=== PATIENT | male | born 1985 | race Caucasian/White ===

== ENCOUNTER 2021-10-04 15:02 | Emergency (ER) | payer OTHER, SELFPAY ==
[2021-10-04 15:12] VITALS: PULSE 95; RESP 18; TEMP 36.8; O2SAT 99; BMI 36.5
[2021-10-04] MEDS: PROPARACAINE 0.5% OPHTH SOL 1 DROPS EYE-LEFT (17:15)
[2021-10-04] MEDS: ERYTHROMYCIN OPHTH 1 GM OINT 1 APPLIC EYE-LEFT (17:16)
[2021-10-04] MEDS: FLUORESCEIN 1 MG STRIP EYE-LEFT (17:16)
--- NOTE | 2021-10-04 17:47 | ED_ITS ---
HPI - Eye Problem <DARRELL Hinton - Last Filed: 10/04/21 20:59> General Chief complaint: Eye Problems Stated complaint: Wood chip in eye, can't remove Time Seen by Provider: 10/04/21 15:34 Source: patient Mode of arrival: Ambulatory History of Present Illness HPI Narrative: 36-year-old male presents to the emergency department complaining of which hip and his left eye. 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 Patient feels like there is still foreign body in his eye he thinks it is scratching the eyelid. He states this has happened to him before, he denies any vision changes, eye pain, he feels sensation of foreign body and that is painful but he denies any eye pain 1 is I moves. He denies any photosensitivity, says he has frequent tearing out of his left eye this time. Patient states his tetanus is up-to-date. Denies any allergies. Related Data Previous Rx's Medication Instructions Recorded ranitidine HCl 150 mg capsule 150 mg PO BID #60 cap 11/25/17 erythromycin 5 mg/gram (0.5 %) eye 1 cm EYE-BOTH Q8H #1 gram 03/30/19 ointment Allergies Allergy/AdvReac Type Severity Reaction Status Date / Time Sulfa (Sulfonamide Allergy Intermediate hives Verified 03/30/19 08:18 Antibiotics) Review of Systems <DARRELL Hinton - Last Filed: 10/04/21 20:59> Review of Systems Narrative: General: denies fever, chills, malaise, sweats, fatigue Head/Neck: denies headache, neck pain, dizziness Eyes: denies visual changes, denies eye pain, states foreign body sensation to left eye Cardio: denies chest pain, palpitations, edema Respiratory: denies dyspnea, cough, orthopnea MSK: denies joint pain, muscle weakness Skin: denies rash, itching, skin lesions or other Neuro: denies numbness, tingling Patient History <DARRELL Hinton - Last Filed: 10/04/21 20:59> Social History Smoking Status: Current every day smoker Smoking Status: Current every day smoker tobacco type: cigarettes alcohol intake frequency: a few times a week Substance Use Type: does not use Exam <DARRELL Hinton - Last Filed: 10/04/21 20:59> Narrative Exam Narrative: Independently reviewed vitals signs and nursing notes. General: cooperative, comfortable, in no acute distress, well developed and well groomed Head: atraumatic, symmetrical facial expressions Neck: supple, atraumatic, without lymphadenopathy. Eyes: pupils equal round and reactive, EOMI, conjunctiva normal, fluorescein exam with Wood's lamp shows a small foreign body on the lateral aspect of his cornea approximately 03:00 o'clock, approximately 1 mm in diameter. This was removed with a wet Q-tip, patient appears have a corneal abrasion in this location. Erythromycin ointment was applied, patient states that he feels better, visual acuity is intact without any deficit, no vision changes, no photosensitivity or eye pain with movements. Nose: nares patent, no rhinorrhea MSK: moves all extremities, ambulatory w/steady gait, neurovascularly intact, no weakness Skin: brisk capillary refill, no rash, no erythema Neuro: normal speech and cognition, A&O x3, normal tone Psych: mental status is grossly normal, congruent mood, normal affect, pleasant and cooperative Initial Vital Signs Initial Vital Signs: Vital Signs Temperature 98.2 F 10/04/21 15:12 Pulse Rate 95 H 10/04/21 15:12 Respiratory Rate 18 10/04/21 15:12 Pulse Oximetry 99 10/04/21 15:12 Course <DARRELL Hinton - Last Filed: 10/04/21 20:59> Orders Ordered: Discontinued Medications Erythromycin (Erythromycin Ophth 1 Gm Oint) 1 applic EYE-LEFT NOW ONE Stop: 10/04/21 15:36 Last Admin: 10/04/21 17:16 Dose: 1 applic Documented by: GIANA Fluorescein Sodium (Fluorescein 1 Mg Strip) 1 mg EYE-LEFT NOW ONE Stop: 10/04/21 15:36 Last Admin: 10/04/21 17:16 Dose: 1 mg Documented by: GIANA Proparacaine HCl (Proparacaine 0.5% Ophth Michelle) 1 drops EYE-LEFT NOW ONE Stop: 10/04/21 15:36 Last Admin: 10/04/21 17:15 Dose: 1 drops Documented by: GIANA Vital Signs Vital signs: Vital Signs - 8 hr 10/04/21 15:12 10/04/21 18:06 Temperature 98.2 F Pulse Rate 95 H 80 Respiratory Rate 18 18 Blood Pressure 151/90 H Pulse Oximetry 99 97 [facility] - Eye Problem <Danyell Turpin, APPEALS BOARD REFEREE - Last Filed: 10/04/21 20:59> MDM Narrative Medical decision making narrative: This is a 36-year-old male who was at work when a piece of sawdust got into his left eye, he came in to the emergency department complaining of foreign body sensation in his left eye. He was found to have a small wood foreign body approximately 1 mm in diameter on the lateral aspect of his left cornea approximately 03:00 o'clock. Fluorescein exam with Wood's lamp shows a small corneal abrasion in this location. Erythromycin ointment was applied, no other foreign bodies or abrasions were visualized on exam with eversion of the lid. Patient was referred to Ophthalmology and understands to follow-up as needed. His tetanus is up-to-date. Patient is appropriate and amenable to discharge home. Vital signs are stable on repeat examination is unremarkable. Patient has been informed of results. Patient has been given strict return to ER precautions for any new or worsening symptoms. Patient understands to follow up closely with outpatient providers as instructed. Patient understands plan and agrees to discharge home. All questions and concerns answered at this time. Discharge Plan Departure Patient Disposition: Home Clinical Impression: Work related injury Corneal foreign body Qualifiers: Encounter type: initial encounter Laterality: left Qualified Code(s): T15.02XA - Foreign body in cornea, left eye, initial encounter Corneal abrasion Qualifiers: Encounter type: initial encounter Laterality: right Qualified Code(s): S05.01XA - Injury of conjunctiva and corneal abrasion without foreign body, right eye, initial encounter Instructions: Corneal Abrasion Activity Restrictions/Additional Instructions: *You have been diagnosed with a corneal abrasion from a wood piece that was imbedded in your cornea now removed. Please use this erythromycin ointment 4 times a day for the next 5 days. Please follow-up with ophthalmology if you have any worsening of your symptoms. Please do not put any antihistamine or allergy eyedrops in your eye. Only natural tears or erythromycin ointment. Thank you for trusting us with your care, [id number]. Follow-up with your primary care provider if you have any problems in the meantime. *What to do: *Please continue to take your regular medications as directed. [ ] New medication prescriptions sent to your pharmacy: [ ] [ ] New medication written as a paper prescription [x ] No new medications given *Please follow up with your primary care provider in 2-3 days, call for an appointment. Let them know you were seen in the Emergency Department and that we asked that you be seen for follow-up. We will electronically transmit a record of today's note if your PCP is in our system *If you do not have a primary care provider please contact [phone] to establish care with one of the [facility] primary care providers. *Return to Emergency Department if you should have any new, worsening or concerning symptoms, such as [fever greater than 101F, chills, worsening pain, persistent vomiting or other bothersome symptoms] Prescriptions: No Action ranitidine HCl 150 mg capsule 150 mg PO BID Qty: 60 2RF erythromycin 5 mg/gram (0.5 %) ointment 1 cm EYE-BOTH Q8H Qty: 1 0RF Referrals: Janny Damon MD [Physician] -
--- NOTE | 2021-10-04 18:03 | PC.NURSE ---
Corby RAMÍREZ canceled visual acuity. Pt had wood removed from his eye and feels so much better. states he can see just fine. denies pain.
[2021-10-04 18:06] VITALS: BP 151/90; PULSE 80; RESP 18; O2SAT 97
== END 2021-10-04 18:08 | disposition home or self-care (01) ==
PROVIDERS: Emergency Provider Nurse Practitioner Critical Care Medicine
DX: T15.02XA Foreign body in cornea, left eye, initial encounter (principal); X58.XXXA Exposure to other specified factors, initial encounter; Y99.0 Civilian activity done for income or pay
CPT/HCPCS: 65220; 99282

== ENCOUNTER 2022-01-01 00:13 | Emergency (ER) | payer OTHER, SELFPAY ==
[2022-01-01 00:19] VITALS: BP 139/81; PULSE 101; PULSE 99; RESP 18; TEMP 37.2; O2SAT 96; O2SAT 98
[2022-01-01 00:30] VITALS: PULSE 97; O2SAT 96
--- NOTE | 2022-01-01 00:39 | DI.RAD.S_ITS ---
PROCEDURE: XR CHEST 1V INDICATIONS: short of breath TECHNIQUE: One view of the chest was acquired. COMPARISON: None. FINDINGS: Surgical changes and devices: None. Lungs and pleura: Lungs are clear. No pleural effusions or pneumothorax. Mediastinum: Mediastinal contours appear normal. Heart size is normal. Bones and chest wall: No suspicious bony lesions. Overlying soft tissues appear unremarkable. IMPRESSION: 1. No acute cardiopulmonary disease. Dictated by: Pierce Araujo M.D. on 01/01/2022 at 1:26 Approved by: Pierce Araujo M.D. on 01/01/2022 at 1:26
[2022-01-01 00:43] LABS: COVID19 -Nasal RAPID Negative (Negative)
--- NOTE | 2022-01-01 00:47 | ED.SOB ---
HPI - SOB/Dyspnea General Chief Complaint: Shortness of Breath/Dyspnea Stated Complaint: SOB Time Seen by Provider: 01/01/22 00:35 Source: patient Mode of arrival: Ambulatory History of Present Illness HPI Narrative: Patient is a 36-year-old male who presents with shortness of breath and chest discomfort. He states that he has had shortness of breath and chest discomfort ongoing for a long time. He has pain in the center of his chest he describes as sharp his last for about 10 minute sometimes it goes to his arms. It comes and goes both at rest and with exertion. He is also complaining of some shortness of breath as well more with exertion. He denies any orthopnea fever chills. He admits to drinking too much alcohol tonight. He tended to his girlfriend that he was having some shortness breath she thought he was short of breath and came to the ER for evaluation. He admits to smoking cigarettes more when he drinks. He states that he does drink regularly but not this much. Related Data Previous Rx's Medication Instructions Recorded ranitidine HCl 150 mg capsule 150 mg PO BID #60 caps 11/25/17 erythromycin 5 mg/gram (0.5 %) eye 1 cm EYE-BOTH Q8H #1 g 03/30/19 ointment Allergies Allergy/AdvReac Type Severity Reaction Status Date / Time Sulfa (Sulfonamide Allergy Intermediate hives Verified 03/30/19 08:18 Antibiotics) Review of Systems Review of Systems Narrative: GENERAL: Denies chills, fatigue, malaise, fever, sweats, travel HEENT: Denies sinus pain, ear pain, sore throat, difficulty swallowing, neck pain RESPIRATORY: See HPI CARDIOVASCULAR: Denies chest pain, palpitations, orthopnea, edema GASTROINTESTINAL: Denies nausea, vomiting, abdominal pain, diarrhea, constipation, melena. : Denies dysuria, frequency, incontinence, hematuria, urinary retention, flank pain. MUSCULOSKELETAL: Denies weakness, joint pain, or bony pain SKIN: No rash, no erythema, no pruritus NEUROLOGIC: Denies weakness, dizziness, headache, numbness, change in speech, confusion PSYCHIATRIC: No concerning psychosocial issues. 12 point review of systems is negative except for those stated above and HPI Patient History Social History Smoking Status: Current every day smoker Smoking Status: Current every day smoker tobacco type: cigarettes alcohol intake frequency: a few times a week Substance Use Type: does not use Exam Initial Vital Signs Initial Vital Signs: Vital Signs Temperature 98.9 F 01/01/22 00:19 Pulse Rate 101 H 01/01/22 00:19 Respiratory Rate 18 01/01/22 00:19 Blood Pressure 139/81 01/01/22 00:19 Pulse Oximetry 98 01/01/22 00:19 Oxygen Delivery Method 01/01/22 00:19 GENERAL: Alert intoxicated 36-year-old male and in no acute distress. HEENT: Head atraumatic,EOMI, pupils reactive, face symmetric, moist mucous membranes CARDIOVASCULAR: Regular rate and rhythm without murmurs, rubs or gallops. RESPIRATORY: Breath sounds equal bilaterally, no wheezes rales or rhonchi. ABDOMEN: Soft, nontender. Normoactive bowel sounds all 4 quadrants. No guarding or rebound. EXTREMITIES: Normal range of motion, no clubbing or edema. Neurovascularly intact NEUROLOGICAL: Alert and oriented x4.Normal gait and speech. SKIN: Warm, dry, no laceration, no petechiae, no rashes or lesions. Scores HEART Score Heart Score history: Slightly Suspicious Heart Score EKG: Normal Heart Score Age: < 45 years old Heart Score risk factors: No known risk factors Heart Score troponin: < or = to normal limit Heart Score Total: 0 PERC Score Age greater than or equal to 50 years: No Heart rate greater than or equal to 100 bpm: Yes (101) Room Air O2 Sat less than 95%: No Unilateral leg swelling: No Recent trauma or surgery: No Hemoptysis: No Prior PE or DVT: No Hormone Use: No Total PERC Score: 1 Course Orders Ordered: ED Orders 01/01/22 00:15 COVID19 -Nasal RAPID/Pre-Proc Stat 01/01/22 00:21 EKG-12 Lead Stat 01/01/22 00:26 Complete Blood Count AUTO DIFF Stat Comprehensive Metabolic Panel Stat Lipase Stat NT-proBNP (BNP-Adult 18+) Stat Troponin & CK Cardiac Panel Stat 01/01/22 00:39 XR chest 1V Stat Discontinued Medications Albuterol (Albuterol Hfa Mdi 60 Puff/8 Gm Inhaler) 1 puff INH NOW ONE Stop: 01/01/22 01:57 Last Admin: 01/01/22 02:04 Dose: 1 puff Documented By: TV Albuterol (Albuterol Hfa Prepack) 1 box MISC SEEINSTR ONE Stop: 01/01/22 02:20 Albuterol/Ipratropium (Albuterol/Ipratropium 3 Ml Ampul) 3 ml INH NOW ONE Stop: 01/01/22 00:51 Last Admin: 01/01/22 02:22 Dose: 3 ml Documented By: EB Vital Signs Vital signs: Vital Signs - 8 hr 01/01/22 00:19 01/01/22 00:19 01/01/22 00:30 Temperature 98.9 F Pulse Rate 101 H 99 H 97 H Respiratory Rate 18 Blood Pressure 139/81 Pulse Oximetry 98 96 96 Oxygen Delivery Method Room Air 01/01/22 01:00 01/01/22 01:30 01/01/22 02:13 Temperature Pulse Rate 97 H 93 H Respiratory Rate Blood Pressure Pulse Oximetry 94 96 97 Oxygen Delivery Method 01/01/22 02:14 01/01/22 02:14 Temperature Pulse Rate 69 Respiratory Rate Blood Pressure 132/70 Pulse Oximetry 98 Oxygen Delivery Method MDM - SOB/Dyspnea Lab Data Result diagrams: 01/01/22 00:26 01/01/22 00:26 Labs: Lab Results 01/01/22 01/01/22 01/01/22 Range/Units 00:15 00:26 00:26 WBC 8.5 (4.5-11.0) X10^3/uL RBC 5.20 (4.5-5.9) X10^6/uL Hgb 15.6 (13.5-17.5) g/dL Hct 44.0 (41-53) % MCV 84.6 (80-100) fL MCH 30.1 (26-34) PG MCHC 35.5 (30-36) % RDW 12.6 (11.6-14.8) % Plt Count 399 (150-400) X10^3/uL Neut % (Auto) 47.0 L (50-75) % Lymph % (Auto) 39.5 (25-40) % Calloway % (Auto) 7.6 (3-14) % Eos % (Auto) 4.7 H (2-4) % Baso % (Auto) 1.2 (0-2) % Neut # (Auto) 4000 (8471-1435) /uL Lymph # (Auto) 3300 (3195-9111) /uL Calloway # (Auto) 600 (0-900) /uL Eos # (Auto) 400 (0-450) /uL Baso # (Auto) 100 (0-100) /uL Sodium 140 (137-145) mmol/L Potassium 4.3 (3.4-5.1) mmol/L Chloride 102 (98-107) mmol/L Carbon Dioxide 21 L (22-32) mmol/L BUN 20 (9-20) mg/dL Creatinine 0.86 (0.66-1.25) mg/dL Estimated GFR > 60 (>60) mL/min BUN/Creatinine Ratio 23.3 H (6-22) Glucose 110 H (70-100) mg/dL Calcium 9.1 (8.4-10.2) mg/dL Total Bilirubin 0.6 (0.2-1.3) mg/dL AST 45 (17-59) IU/L ALT 64 H (<50) IU/L Alkaline Phosphatase 90 (38-126) U/L Total Creatine Kinase 352 H (55-170) U/L CK-MB (CK-2) 1.47 (<2.37) ng/mL CK-MB (CK-2) Rel Index 0.4 L (1.5-5.0) % Troponin I < 0.012 (0.01-0.034) ng/mL NT-Pro-B Natriuret Pep 27 (<125) pg/mL Total Protein 8.6 H (6.3-8.2) g/dL Albumin 5.2 H (3.5-5.0) g/dL Globulin 3.4 (1.7-4.1) g/dL Albumin/Globulin Ratio 1.5 (1.0-2.8) Lipase 123 (23-300) U/L SARS-CoV-2 (PCR) Negative (Negative) Imaging Data Chest x-ray: Radiologist's Impression: : Abdullahi Gtz MR#: [id number] : 1985 Acct:[id number] Age/Sex: 36 / M Date of Service: 01/01/22 Loc: ED Accession Number: [id number] ?? Procedure: XR chest 1V Ordering Provider: Jael Booker D.O. PROCEDURE:? XR CHEST 1V ? INDICATIONS:? short of breath ? TECHNIQUE:? One view of the chest was acquired.? ? COMPARISON:? None. ? FINDINGS:? ? Surgical changes and devices:? None.? ? Lungs and pleura:? Lungs are clear.? No pleural effusions or pneumothorax.? ? Mediastinum:? Mediastinal contours appear normal.? Heart size is normal.? ? Bones and chest wall:? No suspicious bony lesions.? Overlying soft tissues appear unremarkable.? ? IMPRESSION:? ? 1.? No acute cardiopulmonary disease. ? ? ? Dictated by: Pierce Araujo M.D. on 01/01/2022 at 1:26 ? ECG Data Interpretation: Normal sinus rhythm rate 96 DE interval 146 QRS [address] changes no T-wave inversion MDM Narrative Medical decision making narrative: Patient has been having chest pain and shortness of breath ongoing for a while. He is quite intoxicated now but we can alert able to answer questions. Blood work is overall reassuring EKG is reassuring. He was offered DuoNeb treatment to see if it helped his breathing he did have some mild expiratory wheeze but no respiratory distress. He is an active smoker. At this time he declines he is worried about insurance and cost. He is open to having an inhaler and spacer at home. We discussed lifestyle changes along with smoking and alcohol cessation. Discharge Plan Departure Patient Disposition: Home Clinical Impression: Atypical chest pain Instructions: DI for Atypical Chest Pain Activity Restrictions/Additional Instructions: *You have been diagnosed with atypical chest *What to do: At this time blood work chest x-ray and EKG are all reassuring. Recommend quitting smoking and drinking at this will likely help. *Continue to take medications as directed Albuterol inhaler 1-2 puffs with spacer every 4 hours only if needed for shortness of breath *Follow up with your primary care provider in 2-3 days or call [phone] *Return to ER if you should have increasing shortness of breath, worsening chest pain or any new, worsening or concerning symptoms Prescriptions: No Action ranitidine HCl 150 mg capsule 150 mg PO BID Qty: 60 2RF erythromycin 5 mg/gram (0.5 %) ointment 1 cm EYE-BOTH Q8H Qty: 1 0RF Visit Report Forms: Patient Portal/API
[2022-01-01 00:53] LABS: Add Manual Diff / Slide Review NO; Basophils Absolute Auto 100 /uL (0-100); Basophils Percent Auto 1.2 % (0-2); Eosinophils Absolute Auto 400 /uL (0-450); Eosinophils Percent Auto 4.7 % (2-4); Hemoglobin 15.6 g/dL (13.5-17.5); Lymphocytes Absolute Auto 3300 /uL (1100-4500); Lymphocytes Percent Auto 39.5 % (25-40); Mean Corpuscular HGB Conc 35.5 % (30-36); Mean Corpuscular Hemoglobin 30.1 PG (26-34); Mean Corpuscular Volume 84.6 fL (80-100); Monocytes Absolute Auto 600 /uL (0-900); Monocytes Percent Auto 7.6 % (3-14); Neutrophils Absolute Auto 4000 /uL (1500-7000); Platelet Count 399 X10^3/uL (150-400); Red Cell Distribution Width 12.6 % (11.6-14.8); White Blood Cell Count 8.5 X10^3/uL (4.5-11.0)
[2022-01-01 00:56] LABS: Alanine Aminotransferase 64 IU/L (<50); Albumin 5.2 g/dL (3.5-5.0); Albumin Globulin Ratio 1.5 (1.0-2.8); Alkaline Phosphatase 90 U/L (38-126); Aspartate Aminotransferase 45 IU/L (17-59); BUN Creatinine Ratio 23.3 (6-22); Bilirubin Total 0.6 mg/dL (0.2-1.3); Blood Urea Nitrogen 20 mg/dL (9-20); Calcium 9.1 mg/dL (8.4-10.2); Carbon Dioxide 21 mmol/L (22-32); Chloride 102 mmol/L (98-107); Creatine Kinase 352 U/L (55-170); Estimated Glomerular Filt Rate > 60 mL/min (>60); Globulin 3.4 g/dL (1.7-4.1); Glucose 110 mg/dL (70-100); HEMOLYSIS 26 (0-50); Lipase 123 U/L (23-300); Potassium 4.3 mmol/L (3.4-5.1); Sodium 140 mmol/L (137-145); Total Protein 8.6 g/dL (6.3-8.2)
[2022-01-01 01:00] VITALS: PULSE 97; O2SAT 94
[2022-01-01 01:08] LABS: NT-proBNP (BNP-Adult 18+) 27 pg/mL (<125); Troponin I < 0.012 ng/mL (0.01-0.034)
[2022-01-01 01:11] LABS: CKMB % Relative Index 0.4 % (1.5-5.0); Creatine Kinase MB 1.47 ng/mL (<2.37)
[2022-01-01 01:30] VITALS: PULSE 93; O2SAT 96
[2022-01-01] MEDS: ALBUTEROL HFA MDI 60 PUFF/8 GM INHALER INH (02:04)
[2022-01-01 02:13] VITALS: O2SAT 97
[2022-01-01 02:14] VITALS: BP 132/70; PULSE 69; O2SAT 98
[2022-01-01] MEDS: ALBUTEROL/IPRATROPIUM 3 ML AMPUL INH (02:22)
== END 2022-01-01 02:29 | disposition home or self-care (01) ==
PROVIDERS: Emergency Provider Emergency Medicine
DX: R07.89 Other chest pain (principal); R06.02 Shortness of breath; F10.129 Alcohol abuse with intoxication, unspecified; Z20.822 Contact with and (suspected) exposure to COVID-19
CPT/HCPCS: 36415; 71045; 80053; 82550; 82553; 83690; 83880; 84484; 85025; 87635; 93005; 99284; C9803; A9270

== ENCOUNTER → 2022-01-27 08:10 | Outpatient (CLI) | payer OTHER, SELFPAY ==
[2022-01-27 08:57] LABS: Influenza A - CEPHEID Flu A NEGATIVE (NEGATIVE); Influenza B - CEPHEID Flu B NEGATIVE (NEGATIVE)
== END ==
PROVIDERS: Visit Provider Physician Assistant
DX: J02.9 Acute pharyngitis, unspecified (principal)
CPT/HCPCS: 87502

== ENCOUNTER → 2024-04-27 13:08 | Outpatient (CLI) | payer OTHER, SELFPAY ==
[2024-04-27 13:54] LABS: Influenza A - CEPHEID Flu A NEGATIVE (NEGATIVE); Influenza B - CEPHEID Flu B NEGATIVE (NEGATIVE); Respiratory Syncytial Virus Negative (Negative)
[2024-04-27 13:55] LABS: COVID-19 CEPHEID 4-PLEX PCR Negative (Negative)
== END ==
PROVIDERS: PCP Family Medicine; Visit Provider Nurse Practitioner Family
DX: R05.1 Acute cough (principal)
CPT/HCPCS: 0241U

== ENCOUNTER → 2025-06-17 10:03 | Outpatient (CLI) | payer OTHER, SELFPAY ==
[2025-06-17 10:46] LABS: Hematocrit 45.0 % (41-53); Hemoglobin 15.5 g/dL (13.5-17.5); Mean Corpuscular HGB Conc 34.4 % (30-36); Mean Corpuscular Hemoglobin 28.4 PG (26-34); Mean Corpuscular Volume 82.6 fL (80-100); Platelet Count 330 X10^3/uL (150-400)
[2025-06-17 10:59] LABS: Hemoglobin A1C% w Est Avg Glu 5.4 % (4.0-6.0)
[2025-06-17 11:02] LABS: HEMOLYSIS < 15 (0-50); Iron 137 ug/dL (49-181)
[2025-06-17 11:04] LABS: Alanine Aminotransferase 54 IU/L (<50); Albumin 4.5 g/dL (3.5-5.0); Albumin Globulin Ratio 1.5 (1.0-2.8); Alkaline Phosphatase 80 U/L (38-126); Blood Urea Nitrogen 16 mg/dL (9-20); Calcium 9.3 mg/dL (8.4-10.2); Carbon Dioxide 23 mmol/L (22-32); Chloride 104 mmol/L (98-107); Cholesterol 150 mg/dL (140-199); Estimated Glomerular Filt Rate > 60 mL/min (>60); Globulin 3.0 g/dL (1.7-4.1); Glucose 94 mg/dL (70-99); HDL Cholesterol 37 mg/dL (40-60); HEMOLYSIS < 15 (0-50); Potassium 4.7 mmol/L (3.4-5.1); Sodium 138 mmol/L (137-145); Total Protein 7.5 g/dL (6.3-8.2); Triglycerides 233 mg/dL (35-150)
[2025-06-17 11:13] LABS: Percent Iron Saturation 44 % (20-50); Total Iron Binding Capacity 308 ug/dL (261-462); Transferrin 260 mg/dL (206-381)
[2025-06-17 11:21] LABS: Vitamin D 25 Hydroxy (D3) 43.3 ng/mL (30.0-100.0)
[2025-06-17 11:34] LABS: TSH w/ Reflex to FT4 3.26 uIU/mL (0.47-4.68)
[2025-06-17 11:39] LABS: Ferritin 107 ng/mL (18-464)
[2025-06-17 15:09] LABS: HIV 1 & 2 Ab/Ag 4th Gen Combo NEGATIVE (NEGATIVE); Hep C Virus Ab w/Reflex Quant NEGATIVE s/c (NEGATIVE)
== END ==
PROVIDERS: PCP Family Medicine; Referring Provider Family Medicine; Visit Provider Family Medicine
DX: Z13.220 Encounter for screening for lipoid disorders (principal); Z13.1 Encounter for screening for diabetes mellitus; Z11.59 Encounter for screening for other viral diseases; Z11.4 Encounter for screening for human immunodeficiency virus [HIV]; R53.83 Other fatigue; E66.01 Morbid (severe) obesity due to excess calories
CPT/HCPCS: 36415; 80053; 80061; 82306; 82728; 83036; 83540; 83550; 84402; 84403; 84443; 85027; 86803; 87389